=== PATIENT | female | born 1985 | race Two or more races ===

== ENCOUNTER 2021-07-23 15:02 | Emergency (ER) | payer OTHER ==
[~2021-07-23] VITALS: Ht 167.6 cm; Wt 108.9 kg
[2021-07-23] MEDS ORDERED: LEXAPRO20 MG (15:17)
[2021-07-23] MEDS ORDERED: CLONAZEPAM0.5 MG (15:17)
[2021-07-23] MEDS ORDERED: BUTALBIT-ACETA1 EACH PO (20:43)
== END 2021-07-23 20:45 | disposition home or self-care (01) ==
LOC: ER 15:02
DX: G43.909 Migraine, unspecified, not intractable, without status migrainosus (principal); F41.9 Anxiety disorder, unspecified